=== PATIENT | male | born 1945 ===

== ENCOUNTER 2023-08-16 05:03 | Inpatient (IN) | payer OTHER ==
[2023-08-08 12:00] LABS: HEMATOCRIT 39.2 % (39.0-48.0); HEMOGLOBIN 13.4 g/dL (13-16.00); MEAN CELL VOLUME 91.9 fL (80.0-100.00); MEAN CORPUSCULAR HEMOGLOBIN 31.4 pg (27.00-32.0); MEAN CORPUSCULAR HGB CONC 34.1 g/dl (32.0-36.0); PLATELET COUNT 267 K/uL (150-450); RED BLOOD COUNT 4.26 M/uL (4.00-6.00); RED CELL DISTRIBUTION WIDTH 13.1 % (11.5-14.5)
[2023-08-08 12:15] LABS: URINE APPEARANCE Clear; URINE BILIRRUBIN Negative (NEGATIVE); URINE BLOOD Negative; URINE COLOR Dark Yellow; URINE GLUCOSE Negative (NEGATIVE); URINE LEUKOCYTE Trace; URINE NITRATE Negative; URINE PROTEIN Negative (NEGATIVE)
[2023-08-08 12:19] LABS: URINE BACTERIA 21.4 uL (0.0-1933); URINE EPITHELIAL CELLS 3.5 uL (0.0-38.8); URINE RBC 6.8 uL (0.0-20.8); URINE WBC 25.7 uL (0.0-23.2)
[2023-08-08 12:36] LABS: ALBUMIN 3.3 gm/dL (3.4-5.0); BILIRUBIN TOTAL 0.9 mg/dL (0.3-1.2); CALCIUM 9.8 mg/dL (8.5-10.1); CREATININE SERUM 1.05 mg/dL (0.70-1.30); GFR 68.86; GLOBULINA 3.5 G/DL (2.4-3.5); POTASSIUM 3.51 mEq/L (3.5-5.1); TOTAL PROTEIN 6.8 gm/dL (6.4-8.2)
[2023-08-08 12:52] LABS: INR 1.08; PARTIAL THROMBOPLASTIN TIME 27.9 SECONDS (22.0-34.0); PROTHROMBIN TIME 11.3 SECONDS (9.0-11.5)
[~2023-08-16 05:03] MED LIST: ATORVASTATIN CA10 MG PO; DOXAZOSIN; FENOFIBRATE 145MG; NEURONTIN300 MG PO; OMEPRAZOLE-BIC1 EAC1 PO; TAMS0.4C PO
[2023-08-16] MEDS ORDERED: CEFAZOLIN SODIUM 1,000 MG VIAL ONE (12:08)
[2023-08-16] MEDS ORDERED: POVIDONE-IODINE 118 ML BOTT TOP ONE ×2 (18:45→19:30)
[2023-08-16] MEDS ORDERED: CEFAZOLIN SODIUM 1,000 MG VIAL IV ONE (19:30)
[2023-08-16] MEDS ORDERED: ONDANSETRON HCL 2 MG/ML VIAL IV PRN (20:00)
[2023-08-16] MEDS ORDERED: OxyCODONE HCL 5 MG TABLET (ROXICODONE) PO PRN (20:00)
[2023-08-16] MEDS ORDERED: SODIUM CHLORIDE 0.45 % 1,000 ML IV SCH (20:00)
[2023-08-16] MEDS ORDERED: MORPHINE SULFATE 4 MG/ML CARTRIDGE IV PRN (20:00)
[2023-08-16] MEDS ORDERED: SUGAMMADEX SODIUM 200 MG/2 ML VIAL IV ONE ×2 (20:07→20:15)
[2023-08-16] MEDS ORDERED: CELECOXIB 200 MG CAPSULE PO SCH (21:00)
[2023-08-17] MEDS ORDERED: ACETAMINOPHEN 500 MG GEL..CAP PO SCH
[2023-08-17] MEDS ORDERED: CEFAZOLIN SODIUM 1,000 MG VIAL IV SCH (01:00)
[2023-08-17] MEDS ORDERED: GABAPENTIN 300 MG CAPSULE PO SCH (01:00)
[2023-08-17 06:08] LABS: HEMATOCRIT 32.8 % (39.0-48.0); HEMOGLOBIN 11.4 g/dL (13-16.00); MEAN CELL VOLUME 90.7 fL (80.0-100.00); MEAN CORPUSCULAR HEMOGLOBIN 31.5 pg (27.00-32.0); MEAN CORPUSCULAR HGB CONC 34.7 g/dl (32.0-36.0); PLATELET COUNT 239 K/uL (150-450); RED BLOOD COUNT 3.62 M/uL (4.00-6.00); RED CELL DISTRIBUTION WIDTH 12.7 % (11.5-14.5)
[2023-08-17] MEDS ORDERED: DUI500 PO (08:22)
[2023-08-17] MEDS ORDERED: NEURONTIN300 MG PO (08:22)
[2023-08-17] MEDS ORDERED: PERCOCET 7.5-31 EACH PO (08:22)
[2023-08-17] MEDS ORDERED: SENNOSIDES 1 TAB TABLET PO SCH (09:00)
[2023-08-18] MEDS ORDERED: IRON FUM,PS/FOLIC ACID/VITC/B3 1 CAP CAPSULE PO SCH (09:00)
== END 2023-08-17 08:59 | disposition home or self-care (01) | DRG 483 ==
LOC: CIR.AMB 05:03 → SURH 21:05
PROVIDERS: ADMIT Orthopaedic Surgery; ATTEND Orthopaedic Surgery
PROC: 0LS30ZZ Reposition Right Upper Arm Tendon, Open Approach (ICD-10-PCS; 2023-08-16)
PROC: 0PUF0JZ Supplement Right Humeral Shaft with Synthetic Substitute, Open Approach (ICD-10-PCS; 2023-08-16)
PROC: 0RRJ00Z Replacement of Right Shoulder Joint with Reverse Ball and Socket Synthetic Substitute, Open Approach (ICD-10-PCS; principal; 2023-08-16 19:45)
DX: M19.011 Primary osteoarthritis, right shoulder (principal); M75.121 Complete rotator cuff tear or rupture of right shoulder, not specified as traumatic; M89.8X1 Other specified disorders of bone, shoulder; Z20.822 Contact with and (suspected) exposure to COVID-19